=== PATIENT | female | born 1940 | race Two or more races ===

== ENCOUNTER 2022-10-14 10:47 | Outpatient (CLI) | payer MEDICARE, OTHER ==
[~2022-10-14 10:47] MED LIST: ASPI-992 PO; ENAL10TA39 PO
== END 2022-10-14 23:59 | disposition home or self-care (01) ==
LOC: WOU 10:47
PROVIDERS: ATTEND Podiatrist Foot & Ankle Surgery
DX: M86.171 Other acute osteomyelitis, right ankle and foot (principal); L97.514 Non-pressure chronic ulcer of other part of right foot with necrosis of bone; G60.3 Idiopathic progressive neuropathy; I10 Essential (primary) hypertension
CPT/HCPCS: 11044; 73630-TC

== ENCOUNTER → 2022-10-18 | Outpatient (CLI) | payer MEDICARE, OTHER | END | disposition home or self-care (01) | LOC: WOU 11:00 | PROVIDERS: ATTEND Podiatrist Foot & Ankle Surgery | DX: M86.171 Other acute osteomyelitis, right ankle and foot (principal); L97.514 Non-pressure chronic ulcer of other part of right foot with necrosis of bone; G60.3 Idiopathic progressive neuropathy; F03.911 Unspecified dementia, unspecified severity, with agitation | CPT/HCPCS: G0463 ==

== ENCOUNTER 2022-11-22 10:14 | Outpatient (CLI) | payer MEDICARE, OTHER | END 2022-11-22 23:59 | disposition home or self-care (01) | LOC: WOU 10:14 | PROVIDERS: ATTEND Podiatrist Foot & Ankle Surgery | DX: M86.171 Other acute osteomyelitis, right ankle and foot (principal); G60.3 Idiopathic progressive neuropathy; L97.514 Non-pressure chronic ulcer of other part of right foot with necrosis of bone; F03.911 Unspecified dementia, unspecified severity, with agitation | CPT/HCPCS: G0463 ==

== ENCOUNTER 2023-12-21 16:41 | Inpatient (IN) | payer MEDICARE, OTHER ==
[~2023-12-21] VITALS: Ht 165.1 cm; Wt 90.7 kg
[2023-12-21 17:09] LABS: APPEARANCE,URINE Slightly Cloudy (CLEAR); BILIRUBIN,URINE Negative (NEGATIVE); BLOOD, URINE Moderate Ery/uL (NEGATIVE); COLOR,URINE YELLOW (YELLOW); KETONES,URINE Negative (NEGATIVE); LEUKOCYTE ESTERASE ,URINE Small (NEGATIVE); NITRITE, URINE Negative (NEGATIVE); PROTEIN,URINE Negative (NEGATIVE); UGLUCOSE Negative (NEGATIVE); UROBILINOGEN,URINE 0.2 EU/dL (0.2)
[2023-12-21 17:11] LABS: BASOPHILS # (AUTO) 0.1 K/uL (0.0-0.2); BASOPHILS % (AUTO) 0.8 % (0.0-2.0); EOSINOPHILS # (AUTO) 0.1 K/uL (0.0-0.7); EOSINOPHILS % (AUTO) 1.5 % (0.0-6.0); HEMATOCRIT 40 % (33-45); HEMOGLOBIN 13.1 g/dL (11.5-14.8); LYMPHOCYTES # (AUTO) 1.7 K/uL (0.8-4.8); LYMPHOCYTES % (AUTO) 22.8 % (20.0-44.0); MEAN CORPUSCULAR HEMOGLOBIN 28 PG (26.0-33.0); MEAN CORPUSCULAR HGB CONC 33 g/dl (31.0-36.0); MEAN CORPUSCULAR VOLUME 86 fL (82-100); MONOCYTES # (AUTO) 0.7 K/uL (0.1-1.30); MONOCYTES % (AUTO) 8.9 % (2.0-12.0); PLATELET COUNT (AUTO) 277 K/uL (150-450); RED CELL DISTRIBUTION WIDTH 14.2 % (11.5-15.0); WHITE BLOOD COUNT (AUTO) 7.6 K/uL (4.3-11.0)
[2023-12-21] MEDS ORDERED: CARI1.5C PO (17:15)
[2023-12-21] MEDS ORDERED: NEUPRO TD (17:15)
[2023-12-21] MEDS ORDERED: CELE200C PO (17:15)
[2023-12-21] MEDS ORDERED: QUET25TA PO (17:15)
[2023-12-21] MEDS ORDERED: TEMA15CA PO (17:15)
[2023-12-21] MEDS ORDERED: ENAL20TA18 PO (17:15)
[2023-12-21] MEDS ORDERED: VILA40TA PO (17:15)
[2023-12-21] MEDS ORDERED: MEMA5TAB42 PO (17:15)
[2023-12-21] MEDS ORDERED: CLON0.3P TD (17:15)
[2023-12-21] MEDS ORDERED: COLC0.6T67 PO (17:15)
[2023-12-21] MEDS ORDERED: MEMA1CAP2 PO (17:15)
[2023-12-21] MEDS ORDERED: PITA2TAB PO (17:15)
[2023-12-21] MEDS ORDERED: ASPI-1169 PO (17:15)
[2023-12-21 17:19] LABS: CALCIUM, SERUM 8.8 mg/dL (8.5-10.1); CARBON DIOXIDE 26 mmol/L (21-32); CHLORIDE 101 mmol/L (98-107); CREATININE 1.6 mg/dL (0.6-1.3); GLUCOSE 97 mg/dL (74-106); POTASSIUM 3.7 mmol/L (3.5-5.1); SODIUM SERUM 134 mmol/L (136-145); UREA NITROGEN, BLOOD 18 mg/dL (7-18)
[2023-12-21 17:20] LABS: AMPHETAMINE, URINE NEGATIVE (NEGATIVE); BARBITURATE, URINE NEGATIVE (NEGATIVE); BENZODIAZEPINE, URINE NEGATIVE (NEGATIVE); CANNABINOID, URINE NEGATIVE (NEGATIVE); COCCAINE, URINE NEGATIVE (NEGATIVE); OPIATE, URINE NEGATIVE (NEGATIVE); PHENCYCLIDINE SCREEN,URINE NEGATIVE (NEGATIVE)
[2023-12-21 17:25] LABS: ALANINE AMINOTRANSFERASE 21 U/L (12-78); ALBUMIN 3.8 g/dL (3.4-5.0); ALCOHOL, BLOOD < 3 mg/dL (0-10); ALKALINE PHOSPHATASE 73 U/L (46-116); ASPARTATE AMINOTRANSFERASE 16 U/L (15-37); BILIRUBIN,DIRECT 0.1 mg/dL (0.0-0.2); BILIRUBIN,TOTAL 0.5 mg/dL (0.2-1.0); TOTAL PROTEIN, SERUM 7.3 g/dL (6.4-8.2)
[2023-12-21 17:26] LABS: ACETAMINOPHEN 0 ug/ml (10-30); SALICYLATE 1.1 mg/dL (2.8-20.0)
[2023-12-21 18:05] LABS: ADD URINE CULTURE YES; BACTERIA,URINE 3+ /HPF (None Seen); WBC,URINE 21-50 /HPF (0-3)
[2023-12-21 18:06] LABS: SQUAMOUS EPITHELIAL CELL,UR Moderate /HPF (None Seen)
[2023-12-21] MEDS ORDERED: hydrALAZINE HCL 50 MG TABLET ONE (21:21)
[2023-12-21] MEDS: hydrALAZINE HCL 25 MG TABLET PO ONE (21:40)
[2023-12-22] MEDS ORDERED: MAGNESIUM HYDROXIDE 30 ML UDC PO PRN
[2023-12-22] MEDS ORDERED: MAG HYDROX/AL HYDROX/SIMETH 30 ML UDC PO PRN
[2023-12-22] MEDS: BLOOD SUGAR DIAGNOSTIC 1 EACH STRIP IN ONE (00:20)
[2023-12-22] MEDS: TEMAZEPAM 7.5 MG CAPSULE PO PRN (00:47)
[2023-12-22] MEDS: ACETAMINOPHEN 325 MG TABLET PO PRN (00:47)
[2023-12-22] MEDS ORDERED: clonazePAM 0.5 MG TABLET PO PRN ×2 (01:00)
[2023-12-22 06:54] VITALS: BP 184/87; TEMP 97.9; O2SAT 99
[2023-12-22 08:00] VITALS: BP_SYST 118; BP_SYST 147; BP_DIAS 83; BP_DIAS 98; TEMP 98; TEMP 98.7; O2SAT 96; O2SAT 97
[2023-12-22] MEDS ORDERED: NEUPRO TD SCH (09:00)
[2023-12-22] MEDS ORDERED: CELECOXIB 100 MG CAPSULE PO SCH ×2 (09:00)
[2023-12-22] MEDS: MEMANTINE HCL 5 MG TABLET PO SCH (09:00)
[2023-12-22] MEDS: ATORVASTATIN 10 MG TABLET PO SCH (09:00)
[2023-12-22] MEDS ORDERED: Medication Not On Formulary EA (Memantine HCl/Donepezil HCl (Namzaric 14 mg-10 mg Capsul PO SCH (09:00)
[2023-12-22] MEDS: COLCHICINE 0.6 MG TABLET PO SCH (09:01)
[2023-12-22] MEDS: ASPIRIN 81 MG TAB.CHEW PO SCH (09:01)
[2023-12-22] MEDS: ENALAPRIL MALEATE (10 MG) 10 MG TABLET PO SCH (09:01)
[2023-12-22] MEDS: DONEPEZIL 5 MG TABLET PO SCH (09:30)
[2023-12-22] MEDS: risperiDONE 0.25 MG TABLET PO SCH (16:53)
[2023-12-22] MEDS ORDERED: risperiDONE 0.25 MG TABLET PO SCH (17:00)
[2023-12-22] MEDS ORDERED: RISPERIDONE 0.25 MG TAB.RAPDIS PO SCH (17:00)
[2023-12-22 19:45] LABS: APPEARANCE,URINE CLEAR (CLEAR); BILIRUBIN,URINE NEGATIVE (NEGATIVE); BLOOD, URINE TRACE-INTA Ery/uL (NEGATIVE); COLOR,URINE YELLOW (YELLOW); KETONES,URINE TRACE mg/dL (NEGATIVE); LEUKOCYTE ESTERASE ,URINE 2+ (NEGATIVE); NITRITE, URINE NEGATIVE (NEGATIVE); PROTEIN,URINE NEGATIVE (NEGATIVE); UGLUCOSE NEGATIVE (NEGATIVE)
[2023-12-22 19:58] LABS: CREATININE, URINE 148.2 MG/DL (30.0-125.0)
[2023-12-22 20:00] VITALS: BP 105/65; TEMP 98.3; O2SAT 98
[2023-12-22 20:57] LABS: ADD URINE CULTURE YES; BACTERIA,URINE 1+ /HPF (None Seen); MUCUS,URINE Few /LPF (None Seen)
[2023-12-22 21:05] LABS: EOSINOPHIL,URINE None Seen
[2023-12-22] MEDS ORDERED: QUETIAPINE FUMARATE 25 MG TABLET PO SCH (22:00)
[2023-12-22] MEDS ORDERED: TEMAZEPAM 15 MG CAPSULE PO SCH (22:00)
[2023-12-22] MEDS ORDERED: CARIPRAZINE HCL 1.5 MG PO SCH (22:00)
[2023-12-23 08:00] VITALS: BP 154/94; TEMP 97.6; O2SAT 97
[2023-12-23] MEDS: MEMANTINE HCL 5 MG TABLET PO SCH (08:38)
[2023-12-23 16:00] VITALS: BP 168/100; TEMP 97.8; O2SAT 98
[2023-12-24 06:00] VITALS: BP 114/98; TEMP 98; O2SAT 98
[2023-12-24 08:00] VITALS: BP 149/72; TEMP 97.9; O2SAT 98
[2023-12-24] MEDS ORDERED: CLONIDINE HCL 0.3 MG/24H PTWK 1 EA PATCH TD SCH (10:00)
[2023-12-24 16:00] VITALS: BP 120/78; TEMP 97.7; O2SAT 99
[2023-12-24 20:00] VITALS: BP 143/78; TEMP 98.2; O2SAT 97
[2023-12-25 08:00] VITALS: BP 137/66; TEMP 97.8; O2SAT 98
[2023-12-25 16:00] VITALS: BP 125/98; TEMP 97.7; O2SAT 97
[2023-12-25 20:37] VITALS: BP 143/66; TEMP 97.8; O2SAT 98
[2023-12-26 08:00] VITALS: BP 156/71; TEMP 98; O2SAT 96
[2023-12-26] MEDS: risperiDONE 0.25 MG TABLET PO SCH (12:09)
[2023-12-26 16:00] VITALS: BP 116/90; TEMP 98.7; O2SAT 98
[2023-12-26 20:00] VITALS: BP 120/86; TEMP 98.1; O2SAT 96
[2023-12-26] MEDS: risperiDONE 1 MG TABLET PO SCH (21:13)
[2023-12-27 08:00] VITALS: BP 142/66; TEMP 97.9; O2SAT 99
[2023-12-27 16:00] VITALS: BP 139/89; TEMP 98.7; O2SAT 98
[2023-12-27 20:39] VITALS: BP 114/51; TEMP 98; O2SAT 97
[2023-12-28 08:00] VITALS: BP 142/54; TEMP 97.9; O2SAT 96
[2023-12-28 16:00] VITALS: BP 159/92; TEMP 97.9; O2SAT 95
[2023-12-28 20:35] VITALS: BP 140/55; TEMP 98.9; O2SAT 96
[2023-12-29 08:00] VITALS: BP 162/80; TEMP 97.4; O2SAT 97
[2023-12-29] MEDS: ENSURE ENLIVE 237 ML LIQUID (VANILLA) PO SCH (08:44)
[2023-12-29 16:00] VITALS: BP 141/90; TEMP 97.6; O2SAT 96
[2023-12-29 20:00] VITALS: BP 129/81; TEMP 97.6; O2SAT 97
[2023-12-30 08:00] VITALS: BP 116/70; TEMP 97.8; O2SAT 98
[2023-12-30 16:00] VITALS: BP 139/89; TEMP 97.8; O2SAT 98
[2023-12-30 20:00] VITALS: BP 125/75; TEMP 98; O2SAT 99
[2023-12-30] MEDS ORDERED: Z GUARD REMEDY 4 OZ OINT TP PRN (20:00)
[2023-12-31 08:00] VITALS: BP 136/77; TEMP 97.7; O2SAT 96
[2023-12-31 16:18] VITALS: BP 95/63; TEMP 97.9; O2SAT 96
[2023-12-31 20:00] VITALS: BP 121/72; TEMP 97.8; O2SAT 98
[2024-01-01 08:00] VITALS: BP 155/78; TEMP 97.8; O2SAT 95
[2024-01-01 08:14] LABS: CALCIUM, SERUM 9.2 mg/dL (8.5-10.1); CARBON DIOXIDE 21 mmol/L (21-32); CHLORIDE 104 mmol/L (98-107); CREATININE 1.5 mg/dL (0.6-1.3); GLUCOSE 125 mg/dL (74-106); POTASSIUM 4.2 mmol/L (3.5-5.1); SODIUM SERUM 138 mmol/L (136-145); UREA NITROGEN, BLOOD 32 mg/dL (7-18)
[2024-01-01 16:07] VITALS: BP 104/60; TEMP 97.7; O2SAT 98
[2024-01-01 20:33] VITALS: BP 150/62; TEMP 97.9; O2SAT 98
[2024-01-02 08:00] VITALS: BP 126/52; TEMP 97.9; O2SAT 100
[2024-01-02 16:00] VITALS: BP 116/60; TEMP 98.6; O2SAT 100
[2024-01-02 21:21] VITALS: BP 111/46; TEMP 98.6; O2SAT 96
[2024-01-03 08:00] VITALS: BP 134/56; TEMP 97.9; O2SAT 94
[2024-01-03] MEDS: risperiDONE 1 MG TABLET PO SCH (08:44)
[2024-01-03 09:00] VITALS: BP 134/56
== END 2024-01-03 13:45 | DRG 885 ==
LOC: ER 16:49 → GPS 20:33
PROVIDERS: ADMIT Nurse Practitioner Psychiatric/Mental Health; ATTEND Nurse Practitioner Acute Care
DX: F29 Unspecified psychosis not due to a substance or known physiological condition (principal); N17.9 Acute kidney failure, unspecified; N18.9 Chronic kidney disease, unspecified; E87.1 Hypo-osmolality and hyponatremia; F02.818 Dementia in other diseases classified elsewhere, unspecified severity, with other behavioral disturbance; F02.83 Dementia in other diseases classified elsewhere, unspecified severity, with mood disturbance; F02.811 Dementia in other diseases classified elsewhere, unspecified severity, with agitation; I13.0 Hypertensive heart and chronic kidney disease with heart failure and stage 1 through stage 4 chronic kidney disease, or unspecified chronic kidney disease; F02.84 Dementia in other diseases classified elsewhere, unspecified severity, with anxiety; M19.90 Unspecified osteoarthritis, unspecified site; E78.5 Hyperlipidemia, unspecified; M10.9 Gout, unspecified; G20.A1 Parkinson's disease without dyskinesia, without mention of fluctuations; Z91.83 Wandering in diseases classified elsewhere; I50.9 Heart failure, unspecified; M89.8X9 Other specified disorders of bone, unspecified site; Z79.82 Long term (current) use of aspirin; Z79.899 Other long term (current) drug therapy; E66.9 Obesity, unspecified; Z68.33 Body mass index [BMI] 33.0-33.9, adult; F39 Unspecified mood [affective] disorder; Z73.6 Limitation of activities due to disability; F41.9 Anxiety disorder, unspecified
CPT/HCPCS: 36415; 80048-TC; 80076-TC; 81001; 82570-TC; 84300-TC; 85025-TC; 87086-TC; 97110-TC; 97116-TC; 97530-TC; G0480

== ENCOUNTER 2024-02-18 01:12 | Inpatient (IN) | payer MEDICARE, OTHER ==
[~2024-02-18] VITALS: Ht 172.7 cm; Wt 99.8 kg
[~2024-02-18 01:12] MED LIST changes: +ASPI-1169 PO; -ASPI-992 PO; +CARI1.5C PO; +CELE200C PO; +CLON0.3P TD; +COLC0.6T67 PO; -ENAL10TA39 PO; +ENAL20TA18 PO; +MEMA1CAP2 PO; +MEMA5TAB42 PO; +NEUPRO TD; +PITA2TAB PO; +QUET25TA PO; +TEMA15CA PO; +VILA40TA PO
[2024-02-18 01:56] LABS: BASOPHILS % (AUTO) 0.5 % (0.0-2.0); EOSINOPHILS # (AUTO) 0.2 K/uL (0.0-0.7); EOSINOPHILS % (AUTO) 2.9 % (0.0-6.0); HEMATOCRIT 37 % (33-45); LYMPHOCYTES # (AUTO) 1.7 K/uL (0.8-4.8); LYMPHOCYTES % (AUTO) 19.3 % (20.0-44.0); MEAN CORPUSCULAR HEMOGLOBIN 29 PG (26.0-33.0); MEAN CORPUSCULAR HGB CONC 33 g/dl (31.0-36.0); MEAN CORPUSCULAR VOLUME 88 fL (82-100); MONOCYTES % (AUTO) 11.8 % (2.0-12.0); NEUTROPHILS # (AUTO) 5.6 K/uL (1.8-8.9); NEUTROPHILS % (AUTO) 65.5 % (43.0-81.0); PLATELET COUNT (AUTO) 203 K/uL (150-450); RED BLOOD CELL COUNT(AUTO) 4.18 MIL/uL (4.0-5.2); RED CELL DISTRIBUTION WIDTH 15.1 % (11.5-15.0); WHITE BLOOD COUNT (AUTO) 8.6 K/uL (4.3-11.0)
[2024-02-18 02:03] LABS: CARBON DIOXIDE 26 mmol/L (21-32); CHLORIDE 107 mmol/L (98-107); CREATININE 1.2 mg/dL (0.6-1.3); GLUCOSE 95 mg/dL (74-106); POTASSIUM 4.4 mmol/L (3.5-5.1); SODIUM SERUM 140 mmol/L (136-145); UREA NITROGEN, BLOOD 28 mg/dL (7-18)
[2024-02-18 02:09] LABS: ACETAMINOPHEN < 10 ug/ml (10-30); ALANINE AMINOTRANSFERASE 15 U/L (12-78); ALCOHOL, BLOOD < 3 mg/dL (0-10); ALKALINE PHOSPHATASE 75 U/L (46-116); ASPARTATE AMINOTRANSFERASE 12 U/L (15-37); BILIRUBIN,DIRECT 0.1 mg/dL (0.0-0.2); BILIRUBIN,TOTAL 0.4 mg/dL (0.2-1.0)
[2024-02-18 02:12] LABS: SALICYLATE 1.1 mg/dL (2.8-20.0)
[2024-02-18 02:13] LABS: ADD URINE CULTURE NO; APPEARANCE,URINE CLEAR (CLEAR); BACTERIA,URINE Rare /HPF (None Seen); BILIRUBIN,URINE NEGATIVE (NEGATIVE); BLOOD, URINE TRACE-INTA Ery/uL (NEGATIVE); COLOR,URINE YELLOW (YELLOW); KETONES,URINE NEGATIVE (NEGATIVE); LEUKOCYTE ESTERASE ,URINE NEGATIVE (NEGATIVE); NITRITE, URINE NEGATIVE (NEGATIVE); PH,URINE 5.5 (5.0-8.0); PROTEIN,URINE NEGATIVE (NEGATIVE); SQUAMOUS EPITHELIAL CELL,UR Rare /HPF (None Seen); UGLUCOSE NEGATIVE (NEGATIVE); UROBILINOGEN,URINE 0.2 EU/dL (0.2); WBC,URINE 0-2 /HPF (0-3)
[2024-02-18 02:16] LABS: AMPHETAMINE, URINE NEGATIVE (NEGATIVE); BARBITURATE, URINE NEGATIVE (NEGATIVE); BENZODIAZEPINE, URINE NEGATIVE (NEGATIVE); CANNABINOID, URINE NEGATIVE (NEGATIVE); COCCAINE, URINE NEGATIVE (NEGATIVE); OPIATE, URINE NEGATIVE (NEGATIVE); PHENCYCLIDINE SCREEN,URINE NEGATIVE (NEGATIVE)
[2024-02-18] MEDS ORDERED: MAGNESIUM HYDROXIDE 30 ML UDC PO PRN (04:30)
[2024-02-18] MEDS ORDERED: MAG HYDROX/AL HYDROX/SIMETH 30 ML UDC PO PRN (04:30)
[2024-02-18] MEDS ORDERED: LORAZEPAM 0.5 MG TABLET PO PRN ×2 (04:30)
[2024-02-18] MEDS ORDERED: TEMAZEPAM 7.5 MG CAPSULE PO PRN (04:30)
[2024-02-18] MEDS: BLOOD SUGAR DIAGNOSTIC 1 EACH STRIP IN ONE (04:49)
[2024-02-18 05:07] VITALS: BP 129/74; TEMP 98; O2SAT 98
[2024-02-18] MEDS ORDERED: DONE5TAB7 PO (05:25)
[2024-02-18] MEDS ORDERED: ATOR10TA PO (05:26)
[2024-02-18] MEDS ORDERED: BISA10SU61 RC (05:27)
[2024-02-18] MEDS ORDERED: RISP1TAB7 PO (05:30)
[2024-02-18] MEDS ORDERED: Z GUARD REMEDY 4 OZ OINT TP PRN (05:30)
[2024-02-18] MEDS ORDERED: ENAL20TA70 PO (05:31)
[2024-02-18 08:00] VITALS: BP 155/89; TEMP 97.6; O2SAT 95
[2024-02-18] MEDS: ACETAMINOPHEN 325 MG TABLET PO PRN (13:39)
[2024-02-18] MEDS ORDERED: CLONIDINE HCL 0.3 MG/24H PTWK 1 EA PATCH TD SCH (15:00)
[2024-02-18] MEDS ORDERED: BISACODYL SUPP (10 MG) 10 MG/SUPP.RECT SUPP.RECT RC PRN (15:00)
[2024-02-18 16:00] VITALS: BP 137/64; TEMP 97.6; O2SAT 96
[2024-02-18] MEDS: risperiDONE 1 MG TABLET PO SCH (16:38)
[2024-02-18] MEDS: MEMANTINE HCL 5 MG TABLET PO SCH (16:38)
[2024-02-18 20:18] VITALS: BP 134/68; TEMP 97.8; O2SAT 95
[2024-02-18] MEDS: DONEPEZIL 5 MG TABLET PO SCH (21:10)
[2024-02-18] MEDS: ATORVASTATIN 10 MG TABLET PO SCH (21:10)
[2024-02-18] MEDS ORDERED: DONEPEZIL 5 MG TABLET PO SCH (22:00)
[2024-02-19 07:01] LABS: CALCIUM, SERUM 8.8 mg/dL (8.5-10.1); CARBON DIOXIDE 23 mmol/L (21-32); CHLORIDE 109 mmol/L (98-107); CREATININE 1.2 mg/dL (0.6-1.3); GLUCOSE 98 mg/dL (74-106); POTASSIUM 4.1 mmol/L (3.5-5.1); SODIUM SERUM 140 mmol/L (136-145); UREA NITROGEN, BLOOD 20 mg/dL (7-18)
[2024-02-19 07:08] LABS: CHOLESTEROL 148 mg/dL (<200); HDL CHOLESTEROL 51 mg/dL (40-60); LDL 88 mg/dL (0-99); TRIGLYCERIDES 40 mg/dL (30-150)
[2024-02-19 07:45] LABS: BASOPHILS # (AUTO) 0.1 K/uL (0.0-0.2); BASOPHILS % (AUTO) 0.9 % (0.0-2.0); EOSINOPHILS # (AUTO) 0.3 K/uL (0.0-0.7); EOSINOPHILS % (AUTO) 3.9 % (0.0-6.0); HEMATOCRIT 35 % (33-45); HEMOGLOBIN 11.8 g/dL (11.5-14.8); LYMPHOCYTES # (AUTO) 1.1 K/uL (0.8-4.8); LYMPHOCYTES % (AUTO) 15.7 % (20.0-44.0); MEAN CORPUSCULAR HEMOGLOBIN 30 PG (26.0-33.0); MEAN CORPUSCULAR HGB CONC 34 g/dl (31.0-36.0); MEAN CORPUSCULAR VOLUME 88 fL (82-100); MONOCYTES # (AUTO) 0.8 K/uL (0.1-1.30); MONOCYTES % (AUTO) 11.9 % (2.0-12.0); NEUTROPHILS # (AUTO) 4.5 K/uL (1.8-8.9); NEUTROPHILS % (AUTO) 67.6 % (43.0-81.0); RED BLOOD CELL COUNT(AUTO) 3.91 MIL/uL (4.0-5.2); RED CELL DISTRIBUTION WIDTH 15.2 % (11.5-15.0)
[2024-02-19 07:49] LABS: PLATELET COUNT (AUTO) 579 K/uL (150-450); WHITE BLOOD COUNT (AUTO) 6.9 K/uL (4.3-11.0)
[2024-02-19 08:00] VITALS: BP 152/58; TEMP 97.7; O2SAT 94
[2024-02-19] MEDS: MEMANTINE HCL 5 MG TABLET PO SCH (09:00)
[2024-02-19] MEDS: COLCHICINE 0.6 MG TABLET PO SCH (09:41)
[2024-02-19] MEDS: LISINOPRIL (20MG) 20 MG TABLET PO SCH (09:41)
[2024-02-19] MEDS: ASPIRIN 81 MG TAB.CHEW PO SCH (09:42)
[2024-02-19 09:48] LABS: ANISOCYTOSIS 1+; PLATELET ESTIMATE INCREASED
[2024-02-19 16:00] VITALS: BP 124/86; TEMP 97.9; O2SAT 98
[2024-02-19 20:51] VITALS: BP 125/57; TEMP 98.1; O2SAT 98
[2024-02-21] MEDS: TEMAZEPAM 7.5 MG CAPSULE PO PRN (01:57)
[2024-02-21 08:00] VITALS: BP 151/82; TEMP 97.9; O2SAT 97
[2024-02-21] MEDS: DIVALPROEX SODIUM 125 MG TABLET.DR PO SCH (11:16)
[2024-02-21 12:29] LABS: BASOPHILS % (AUTO) 0.4 % (0.0-2.0); EOSINOPHILS # (AUTO) 0.2 K/uL (0.0-0.7); EOSINOPHILS % (AUTO) 3.7 % (0.0-6.0); HEMATOCRIT 37 % (33-45); HEMOGLOBIN 12.2 g/dL (11.5-14.8); LYMPHOCYTES # (AUTO) 1.4 K/uL (0.8-4.8); LYMPHOCYTES % (AUTO) 23.5 % (20.0-44.0); MEAN CORPUSCULAR HEMOGLOBIN 30 PG (26.0-33.0); MEAN CORPUSCULAR HGB CONC 33 g/dl (31.0-36.0); MEAN CORPUSCULAR VOLUME 89 fL (82-100); MONOCYTES # (AUTO) 0.6 K/uL (0.1-1.30); NEUTROPHILS # (AUTO) 3.6 K/uL (1.8-8.9); NEUTROPHILS % (AUTO) 61.4 % (43.0-81.0); PLATELET COUNT (AUTO) 245 K/uL (150-450); RED CELL DISTRIBUTION WIDTH 14.8 % (11.5-15.0); WHITE BLOOD COUNT (AUTO) 5.8 K/uL (4.3-11.0)
[2024-02-21 16:15] VITALS: BP 167/82; TEMP 97.6; O2SAT 99
[2024-02-21 20:00] VITALS: BP 119/71; TEMP 97.9; O2SAT 98
[2024-02-22 08:00] VITALS: BP 132/60; TEMP 97.6; O2SAT 98
[2024-02-22 16:00] VITALS: BP 144/81; TEMP 97.9; O2SAT 98
[2024-02-22 20:00] VITALS: BP 135/65; TEMP 97.8; O2SAT 99
[2024-02-23 08:00] VITALS: BP 112/71; TEMP 97.8; O2SAT 98
[2024-02-23 16:00] VITALS: BP 112/59; TEMP 98; O2SAT 97
[2024-02-23 20:01] VITALS: BP 126/66; TEMP 97.8; O2SAT 95
[2024-02-24 08:00] VITALS: BP 131/90; TEMP 97.9; O2SAT 97
[2024-02-24] MEDS: DIVALPROEX SODIUM 250 MG TABLET.DR PO SCH (09:31)
[2024-02-24 16:00] VITALS: BP 143/100; TEMP 98.6; O2SAT 99
[2024-02-24 20:00] VITALS: BP 130/90; TEMP 97.5; O2SAT 95
[2024-02-25 08:00] VITALS: BP 143/58; TEMP 97.9; O2SAT 96
[2024-02-25 16:00] VITALS: BP 136/60; TEMP 97.6; O2SAT 98
[2024-02-25 20:06] VITALS: BP 106/62; TEMP 97.6; O2SAT 96
[2024-02-26 08:00] VITALS: BP 139/60; TEMP 98; O2SAT 95
[2024-02-26 16:00] VITALS: BP 140/65; TEMP 98; O2SAT 98
[2024-02-26 20:29] VITALS: BP 129/56; TEMP 97.8; O2SAT 98
[2024-02-27 08:00] VITALS: BP 148/74; TEMP 97.7; O2SAT 97
[2024-02-27 16:00] VITALS: BP 133/62; TEMP 97.8; O2SAT 98
[2024-02-27 20:11] VITALS: BP 122/57; TEMP 97.8; O2SAT 98
[2024-02-27] MEDS: DIVALPROEX SODIUM 250 MG TABLET.DR PO SCH (21:06)
[2024-02-28 08:00] VITALS: BP 118/69; TEMP 98; O2SAT 98
[2024-02-28 16:00] VITALS: BP 116/60; TEMP 98; O2SAT 96
[2024-02-28 20:38] VITALS: BP 134/66; TEMP 98; O2SAT 98
[2024-02-29 08:00] VITALS: BP 113/52; TEMP 97.9; O2SAT 100
[2024-02-29 16:00] VITALS: BP 133/57; TEMP 98.1; O2SAT 99
[2024-02-29 20:00] VITALS: BP 128/61; TEMP 98.4; O2SAT 99
[2024-02-29 21:35] LABS: BASOPHILS % (AUTO) 0.5 % (0.0-2.0); EOSINOPHILS # (AUTO) 0.2 K/uL (0.0-0.7); EOSINOPHILS % (AUTO) 3.9 % (0.0-6.0); HEMATOCRIT 36 % (33-45); HEMOGLOBIN 11.6 g/dL (11.5-14.8); LYMPHOCYTES # (AUTO) 1.7 K/uL (0.8-4.8); LYMPHOCYTES % (AUTO) 26.6 % (20.0-44.0); MEAN CORPUSCULAR HEMOGLOBIN 29 PG (26.0-33.0); MEAN CORPUSCULAR HGB CONC 32 g/dl (31.0-36.0); MEAN CORPUSCULAR VOLUME 89 fL (82-100); MONOCYTES # (AUTO) 0.7 K/uL (0.1-1.30); MONOCYTES % (AUTO) 11.6 % (2.0-12.0); NEUTROPHILS # (AUTO) 3.6 K/uL (1.8-8.9); NEUTROPHILS % (AUTO) 57.4 % (43.0-81.0); PLATELET COUNT (AUTO) 213 K/uL (150-450); RED BLOOD CELL COUNT(AUTO) 4.05 MIL/uL (4.0-5.2); RED CELL DISTRIBUTION WIDTH 15.2 % (11.5-15.0); WHITE BLOOD COUNT (AUTO) 6.3 K/uL (4.3-11.0)
[2024-02-29 21:48] LABS: VALPROIC ACID 62 ug/mL (50-100)
[2024-02-29 21:53] LABS: ALANINE AMINOTRANSFERASE 16 U/L (12-78); ALBUMIN 2.8 g/dL (3.4-5.0); ALKALINE PHOSPHATASE 66 U/L (46-116); ASPARTATE AMINOTRANSFERASE 11 U/L (15-37); BILIRUBIN,TOTAL 0.3 mg/dL (0.2-1.0); CALCIUM, SERUM 8.1 mg/dL (8.5-10.1); CARBON DIOXIDE 27 mmol/L (21-32); CHLORIDE 108 mmol/L (98-107); CREATININE 1.6 mg/dL (0.6-1.3); GLUCOSE 130 mg/dL (74-106); SODIUM SERUM 141 mmol/L (136-145); TOTAL PROTEIN, SERUM 5.4 g/dL (6.4-8.2); UREA NITROGEN, BLOOD 38 mg/dL (7-18)
[2024-03-01 08:00] VITALS: BP 127/70; TEMP 98.4; O2SAT 99
[2024-03-01 16:00] VITALS: BP 137/63; TEMP 98.2; O2SAT 96
[2024-03-01 20:00] VITALS: BP 116/81; TEMP 98.2; O2SAT 98
[2024-03-02 08:00] VITALS: BP 154/71; TEMP 97.8; O2SAT 100
[2024-03-02 08:45] VITALS: BP 142/79
== END 2024-03-02 13:30 | DRG 885 ==
LOC: ER 01:20 → GPS 02:47
PROVIDERS: ADMIT Psychiatry & Neurology Psychiatry; ATTEND Nurse Practitioner Family
DX: F39 Unspecified mood [affective] disorder (principal); I11.0 Hypertensive heart disease with heart failure; F02.82 Dementia in other diseases classified elsewhere, unspecified severity, with psychotic disturbance; F02.83 Dementia in other diseases classified elsewhere, unspecified severity, with mood disturbance; E44.0 Moderate protein-calorie malnutrition; F29 Unspecified psychosis not due to a substance or known physiological condition; G20.A1 Parkinson's disease without dyskinesia, without mention of fluctuations; I50.9 Heart failure, unspecified; M19.90 Unspecified osteoarthritis, unspecified site; Z66 Do not resuscitate; E78.5 Hyperlipidemia, unspecified; M10.9 Gout, unspecified; E66.9 Obesity, unspecified; Z68.33 Body mass index [BMI] 33.0-33.9, adult; Z79.82 Long term (current) use of aspirin; E88.09 Other disorders of plasma-protein metabolism, not elsewhere classified; Z79.01 Long term (current) use of anticoagulants; Z79.899 Other long term (current) drug therapy; R79.89 Other specified abnormal findings of blood chemistry
CPT/HCPCS: 36415; 80048-TC; 80053-TC; 80061-TC; 80076-TC; 80164-TC; 81001; 85025-TC; 87081-TC; 97110-TC; 97116-TC; 97530-TC; G0480